=== PATIENT | female | born 1985 | race Caucasian/White ===

== ENCOUNTER 2017-02-12 10:06 | Emergency (ER) | payer OTHER | END 2017-02-12 11:22 | disposition home or self-care (01) | LOC: ER 10:06 | DX: M25.531 Pain in right wrist (principal); F41.9 Anxiety disorder, unspecified; F17.210 Nicotine dependence, cigarettes, uncomplicated; Z90.49 Acquired absence of other specified parts of digestive tract; Z79.899 Other long term (current) drug therapy; X50.1XXA Overexertion from prolonged static or awkward postures, initial encounter; Y92.009 Unspecified place in unspecified non-institutional (private) residence as the place of occurrence of the external cause ==

== ENCOUNTER 2017-04-17 14:14 | Emergency (ER) | payer OTHER | END 2017-04-17 15:55 | disposition home or self-care (01) | LOC: ER 14:14 | DX: N30.91 Cystitis, unspecified with hematuria (principal); N32.89 Other specified disorders of bladder; F41.9 Anxiety disorder, unspecified; F17.210 Nicotine dependence, cigarettes, uncomplicated; Z90.49 Acquired absence of other specified parts of digestive tract; Z79.899 Other long term (current) drug therapy | CPT/HCPCS: 36415; 96361; 96374; 96375; J1885 ==